=== PATIENT | female | born 1985 | race Caucasian/White ===

== ENCOUNTER 2021-03-27 10:19 | Emergency (ER) | payer BC, SELFPAY ==
[2021-03-27 11:20] VITALS: BP 168/71; PULSE 75; RESP 19; TEMP 37; O2SAT 100; BMI 25.7
--- NOTE | 2021-03-27 11:42 | HMH.EDUTC ---
[facility] [place] Disposition Clinical Impression: Cough Disposition: Home, Self-Care Condition on Discharge: Good Instructions: Cough, DI for COVID-19 (Suspected or Confirmed ), Coronavirus Disease 2019, Preventing the Spread of Coronavirus Discharge Instructions, Guaifenesin Additional Instructions: Monitor Temp, Over the counter Motrin or Tylenol as directed/as needed Tylenol every 4 hours and Motrin every 6 hours (as long as your family doctor has told you that you can take it) for fever or pain. and straight to ER if unable to lower temp less than 101.0 after medication given *Warm salt water gargles may help to soothe the throat *Throat Lozenges *Warm fluids like tea with honey may help to soothe the throat *Sleep elevated *Humidifier/Vaporizer Mucinex may help with cough and congestion make sure you are drinking plenty of fluids with it Follow up IMMEDIATELY for new or worsening symptoms or no Noticeable improvement over the next 48-72 hours. 911 for difficulty breathing or swallowing You were tested for today for COVID19 your test result should be back in the next 24-48 hours, you may call to the [facility] to see if your test results are back in the next 48 hours [phone] [facility] hours are 9am-9pm You was given a handout with instructions for Self Quarantine and Self isolation for while you wait on test results and what to do if they are positive If you are positive the Health Dept will be contacting you also Make sure to take your Vitamins Vit. C Vit D and Zinc if you can take them Prescriptions: guaiFENesin [Mucinex 600mg tablet] 1 - 2 tab PO Q12HP PRN #20 tab.er.12h PRN Reason: Congestion Transmission Status: Pending to [id number] Referrals: Pawel Wong [Primary Care Provider] - As needed Forms: Work/School Release Time of Disposition: 11:53 Medical Decision Making - Kamron Inquiry Pt receiving controlled substance: No Kamron was queried for this patient: No Vital Signs: 03/27/21 11:20 Temperature 98.6 F Temperature Source Oral Pulse Rate [Right Brachial] 75 Respiratory Rate 19 Blood Pressure [Right Arm] 168/71 H Blood Pressure Mean [Right Arm] 103 Blood Pressure Source [Right Arm] Automatic Cuff Blood Pressure Position [Right Arm] Sitting 02 Sat by Pulse Oximetry 100 Oxygen Delivery Method Room Air Orders (Tests/Meds): ORDERS Category Date Time Status Covid-19 Nasal PCR ([facility]) Routine Lab 03/27/21 11:16 Received [facility] [place] HPI - General Stated complaint: chest congestion,cough Time Seen by Provider: 03/27/21 11:42 Mode of Arrival: Ambulatory Source of Information: Patient Limitations: No Limitations Description of Symptoms (Recalled from Triage Doc. 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 and was concerned and wanted to get tested for COVID States that she has not been exposed to anyone that she is aware of but today when she was still feeling bad she came in - Related Data Home Medications Medication Instructions Recorded Confirmed Escitalopram Oxalate [Lexapro] 10 mg PO DAILY 03/27/21 03/27/21 Omeprazole [Omeprazole 40mg 40 mg PO DAILY 03/27/21 03/27/21 Capsule] Previous Rx's Medication Instructions Recorded guaiFENesin [Mucinex 600mg tablet] 1 - 2 tab PO Q12HP PRN #20 03/27/21 tab.er.12h Allergies Allergy/AdvReac Type Severity Reaction Status Date / Time No Known Allergies Allergy Verified 03/27/21 11:35 - Worker's Comp Is this a Worker's Comp case?: No [facility] History - Hepatitis A Screen Drug use history?: No High risk sexual b
[2021-03-27 11:51] VITALS: BP 168/71; PULSE 75; RESP 19; TEMP 37; O2SAT 100
--- NOTE | 2021-03-27 21:02 | PC.NURSE ---
PT NOTIFIED OF POSITIVE COVID RESULT
== END 2021-03-27 12:00 | disposition home or self-care (01) ==
PROVIDERS: Emergency Provider Nurse Practitioner; PCP Family Medicine
DX: U07.1 COVID-19 (principal); F41.9 Anxiety disorder, unspecified
CPT/HCPCS: 99202; G0463; U0003

== ENCOUNTER 2021-11-03 01:20 | Emergency (ER) | payer BC, SELFPAY ==
[2021-11-03 01:22] VITALS: BP 141/63; PULSE 69; RESP 18; TEMP 36.4; O2SAT 100; BMI 26.2
--- NOTE | 2021-11-03 01:41 | XR_ITS ---
PROCEDURE INFORMATION: Exam: XR Left Hand Exam date and time: 11/03/2021 1:47 AM Age: 36 years old Clinical indication: Injury or trauma; Fall; Blunt trauma (contusions or hematomas); Hand; Left; Additional info: Fall with injury bent fingers back in fall pain and swelling left middle finger TECHNIQUE: Imaging protocol: XR Left hand. Views: 3 or more views. COMPARISON: No relevant prior studies available. FINDINGS: Bones/joints: Oblique fracture seen through the middle phalanx of the 3rd digit. Minimal displacement. Soft tissues: Normal. IMPRESSION: Oblique fracture middle phalanx 3rd digit.
[2021-11-03 01:54] LABS: Urine Pregnancy, HCG Qual. Negative (Negative)
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
[2021-11-03 02:26] VITALS: BP 135/71; PULSE 64; RESP 14; TEMP 36.6; O2SAT 100
== END 2021-11-03 02:27 | disposition home or self-care (01) ==
PROVIDERS: Emergency Provider Emergency Medicine; PCP Family Medicine
DX: S62.623A Displaced fracture of middle phalanx of left middle finger, initial encounter for closed fracture (principal); W01.0XXA Fall on same level from slipping, tripping and stumbling without subsequent striking against object, initial encounter; Y92.9 Unspecified place or not applicable
CPT/HCPCS: 73130; 81025; 99283

== ENCOUNTER 2022-01-27 09:16 | Emergency (ER) | payer BC, SELFPAY ==
[2022-01-27 09:25] VITALS: BP 143/80; PULSE 72; RESP 16; TEMP 36.8; O2SAT 95; BMI 27.4
[2022-01-27 09:39] LABS: Adenovirus,PCR Not Detected (NotDetected); Chlamydophila Pneumoniae, PCR Not Detected (NotDetected); Coronavirus 229E Not Detected (NotDetected); Coronavirus NL63 Not Detected (NotDetected); Coronavirus OC43 Not Detected (NotDetected); Coronovirus HKU1,PCR Not Detected (NotDetected); Human Metapneumovirus Not Detected (NotDetected); Influenza A, PCR Not Detected (NotDetected); Influenza AH1, 2009 Not Detected (NotDetected); Influenza AH1, PCR Not Detected (NotDetected); Influenza AH3,PCR Not Detected (NotDetected); Influenza B, PCR Not Detected (NotDetected); Mycoplasma Pneumoniae, PCR Not Detected (NotDetected); Parainfluenza 1, PCR Not Detected (NotDetected); Parainfluenza 2, PCR Not Detected (NotDetected); Parainfluenza 3, PCR Not Detected (NotDetected); Parainfluenza 4, PCR Not Detected (NotDetected); Respiratory Syncytial Virus Not Detected (NotDetected); Rhinovirus/Enterovirus Not Detected (NotDetected)
--- NOTE | 2022-01-27 09:41 | HMH.EDUTC ---
[facility] [place] Disposition Clinical Impression: Viral syndrome Pharyngitis Qualifiers: Pharyngitis/tonsillitis etiology: unspecified etiology Qualified Code(s): J02.9 - Acute pharyngitis, unspecified Disposition: Home, Self-Care Condition on Discharge: Good Instructions: DI for Viral Syndrome, Preventing the Spread of Coronavirus Discharge Instructions Additional Instructions: Drink plenty of fluids. Take tylenol or ibuprofen for pain or fever. Take the medications as directed. Follow up with your regular doctor. GO TO THE ER FOR ANY WORSENING SYMPTOMS Quarantine until you know the results of your covid-19 test. Notify your school or workplace of your results and follow their instructions regarding return to work/school. Prescriptions: Brompheniramine/Pseudoephed/Dm [Bromfed Dm Cough Syrup] 5 ml PO Q6HP PRN #240 ml PRN Reason: Cough Transmission Status: Received by [id number] guaiFENesin [Mucinex 600mg tablet] 1 - 2 tab PO BIDP PRN #30 tab PRN Reason: Congestion Transmission Status: [id number] Referrals: Pawel Wong [Primary Care Provider] - Forms: Work/School Release Time of Disposition: 10:07 Medical Decision Making - Medical Records Medical records reviewed: No: I reviewed the patient's medical records. - Kamron Inquiry Pt receiving controlled substance: No Vital Signs: 01/27/22 09:25 01/27/22 10:11 Temperature 98.2 F 98.2 F Temperature Source Oral Pulse Rate 72 Pulse Rate [Left Radial] 72 Respiratory Rate 16 16 Blood Pressure 143/80 H Blood Pressure [Right Arm] 143/80 H Blood Pressure Mean [Right Arm] 101 02 Sat by Pulse Oximetry 95 - Lab Data Lab Results 01/27/22 09:25: Influenza Type A Ag Negative, Influenza Type B Ag Negative 01/27/22 09:26: Chlamy pneumoniae PCR Not detected, Adenovirus (PCR) Not detected, B. pertussis DNA (PCR) Not detected, Coronavirus OC43 (PCR) Not detected, Coronavirus HKU1 (PCR) Not detected, Coronavirus 229E (PCR) Not detected, SARS-CoV-2 (PCR) Detected A, Coronavirus NL63 (PCR) Not detected, Human Metapneumovir PCR Not detected, Influenza A (H1) PCR Not detected, Influ A (H1N1/09) PCR Not detected, Influenza A (H3) PCR Not detected, Influenza Type A (PCR) Not detected, Influenza Type B (PCR) Not detected, M. pneumoniae (PCR) Not detected, Parainfluenza 1 (PCR) Not detected, Parainfluenza 2 (PCR) Not detected, Parainfluenza 3 (PCR) Not detected, Parainfluenza 4 (PCR) Not detected, RSV (PCR) Not detected, Entero/Rhino (PCR) Not detected 01/27/22 09:26: Group A Strep Rapid Negative Orders (Tests/Meds): ORDERS Category Date Time Status Strep Screen Confirmation Stat Micro 01/27/22 09:26 Received [facility] [place] HPI - General Stated complaint: chest congestion, sore throat, bodyaches, VUONG Time Seen by Provider: 01/27/22 09:41 Description of Symptoms (Recalled from Triage Doc. by RN): patient comes in with complaints of body aches, chest congestion, cough,headaches, sore throat, chills. symptoms began yesterday. HEENT Symptoms (Recalled from RN notes): Yes Resp Symptoms (Recalled from RN notes): Yes Skin Symptoms (Recalled from RN notes): No MS Symptoms (Recalled from RN notes): No Functional Status (Recalled from RN notes): wnl - History of Present Illness Provider Complaint: She states that she has had body aches, chills, fever, scratchy sore throat and she has felt bad since yesterday. - Related Data Home Medications Medication Instructions Recorded Confirmed Omeprazole [Omeprazole 40mg 40 mg PO DAILY 03/27/21 11/13/21 Capsule] atenolol 100 mg tablet 100 mg PO DAILY tab 11/13/21 01/27/22 Previous Rx's Medication Instructions Recorded Brompheniramine/Pseudoephed/Dm 5 ml PO Q6HP PRN #240 ml 01/27/22 [Bromfed Dm Cough Syrup] guaiFENesin [Mucinex 600mg tablet] 1 - 2 tab PO BIDP PRN #30 tab 01/27/22 Allergies Allergy/AdvReac Type Severity Reaction Status Date / Time No Know
[2022-01-27 09:54] LABS: Strep Scrn Group A (Rapid) Negative (Negative)
[2022-01-27 10:02] LABS: UTC Influenza A Antigen Negative (Negative); UTC Influenza B Antigen Negative (Negative)
[2022-01-27 10:11] VITALS: BP 143/80; PULSE 72; RESP 16; TEMP 36.8
[2022-01-27 11:26] LABS: Bordetella Pertussis Not Detected (NotDetected); Coronavirus 19, PCR Detected (NotDetected)
== END 2022-01-27 10:12 | disposition home or self-care (01) ==
PROVIDERS: Emergency Provider Nurse Practitioner Family; PCP Family Medicine
DX: U07.1 COVID-19 (principal); J02.9 Acute pharyngitis, unspecified
CPT/HCPCS: 87430; 87581; 87632; 87798; 87804; 99212; C9803; G0463; U0003; U0005

== ENCOUNTER 2023-01-08 07:58 | Emergency (ER) | payer BC, SELFPAY ==
[2023-01-08] VITALS (9 sets, daily range): BP systolic 126–169; BP diastolic 66–92; PULSE 58–107; RESP 16–18; TEMP 36.4–36.7; O2SAT 96–100; BMI 23.8
--- NOTE | 2023-01-08 08:05 | HMH.EDGENADL ---
Discharge Plan Disposition Patient Disposition: Home, Self-Care Prescriptions Prescriptions: No Action atenolol 100 mg tablet 100 mg PO DAILY omeprazole 40 MG capsule,delayed release(DR/EC) 40 mg PO DAILY wohjemcsitiaenm-wzjfqvjim-AP 118 ML syrup 5 ml PO Q6HP PRN (Reason: Cough) Qty: 240 0RF guaifenesin 600 MG tablet extended release 12hr 1 - 2 tab PO BIDP PRN (Reason: Congestion) Qty: 30 0RF Referrals Follow up/Referrals: Pawel Wong [Primary Care Provider] - See instructions Activity Restrictions/Add. Instructions Additional Instructions/Restrictions: Please follow-up with a headache neurology specialist return to the emergency part with any worsening symptoms. Clinical Impressions Clinical Impression: Headache Discharge ED Provider: Carol Mandujano General Adult HPI General Chief complaint: Headache Stated complaint: VUONG, nausea, vision's blurring Time Seen by Provider: 01/08/23 08:05 History of Present Illness HPI narrative: Patient is a 37-year-old female presenting today with headache. She states that this is similar to previous headaches has been having over the last few years. She was never diagnosed with any headaches before about 2 years ago at which point her primary care doctor has been treating her with abortive medications and she has not been on any suppressive medications for her headache. She has never had any neuroimaging of her brain she claims. She does have intermittent blurred vision with these headaches but has no other neurologic symptoms associated with them including numbness weakness tingling changes in coordination etc. No fevers or chills or neck stiffness associate with these. There is some photophobia. She takes Tylenol ibuprofen and BC powder on a regular basis also has been prescribed sumatriptan hand which typically does not help her headaches but only makes her somnolent she claims. Today's headache is been going on for 4 days. Has been slowly worsening no thunderclap component. Related Data Home Medications Medication Instructions Recorded Confirmed omeprazole 40 mg capsule,delayed 40 mg PO DAILY GERD 03/27/21 11/13/21 release atenolol 100 mg tablet 100 mg PO DAILY High blood pressure 11/13/21 01/27/22 Previous Rx's Medication Instructions Recorded uijpzjpomxhqxdh-konyfhsqdewqkmg-DS 5 ml PO Q6HP PRN Cough #240 mL 01/27/22 2 mg-30 mg-10 mg/5 mL oral syrup guaifenesin 600 mg tablet, 1 - 2 tab PO BIDP PRN Congestion 01/27/22 extended release 12 hr #30 tabs Allergies Allergy/AdvReac Type Severity Reaction Status Date / Time No Known Allergies Allergy Verified 01/27/22 09:29 [facility] Disclaimer: The information contained in this section may have been updated after the patient was seen, as this information can be updated by other users. Medical History (Updated 01/08/23 @ 11:27 by Carol Mandujano MD) Headache Surgical History (Updated 01/08/23 @ 08:09 by Whitney Mckeon RN) S/P cervical spinal fusion Social History Smoking Status: Former smoker alcohol intake: never current occupational status: employed and other Travel in the last 8 weeks: None ROS Obtained: Yes All systems reviewed & no additional complaints except as documented Physical Exam General General appearance: alert Respiratory Respiratory exam: Present normal lung sounds bilaterally; Absent respiratory distress Cardiovascular Cardiovascular exam: Present regular rate; Absent tachycardia Neurological Exam Neurological exam: Present alert, oriented X3, CN II-XII intact and normal gait; Absent motor sensory deficit Medical Decision Making Kamron Inquiry Pt receiving controlled substance: No Vital Signs: 01/08/23 07:59 01/08/23 08:32 01/08/23 08:21 Temperature 97.6 F Temperature Source Oral Pulse Rate 107 H 81 Pulse Rate [Right Radial] 89 Respiratory Rate 16 18 Blood Press
--- NOTE | 2023-01-08 08:10 | CT_ITS ---
FINAL REPORT TECHNIQUE: Axial CT images were performed through the head. Coronal reformatted images were submitted. This study was performed with techniques to keep radiation doses as low as reasonably achievable (ALARA). Individualized dose reduction techniques using automated exposure control or adjustment of mA and/or kV according to the patient's size were employed. CLINICAL HISTORY: VUONG migraine behind eyes x 4 days FINDINGS: The ventricles are normal in size. There is no evidence of hemorrhage. There is no mass or edema identified. There is no abnormal extra-axial fluid seen. The sinuses are well aerated. The globes are symmetric. IMPRESSION: No acute intracranial process. Reviewed, Interpreted and Dictated by Richard Devlin MD Transcribed by Marlene Diaz Authenticated and [facility]
[2023-01-08 08:54] LABS: HCG Qualitative, Serum Negative (Negative)
--- NOTE | 2023-01-08 09:00 | PC.NURSE ---
PT TO RAD
--- NOTE | 2023-01-08 09:38 | PC.NURSE ---
RONDED ON PT NOTHIN NEEDED AT THIS TIME
--- NOTE | 2023-01-08 10:57 | PC.NURSE ---
CHECKED ON PT NOTHING NEEDED AT THIS TIME
--- NOTE | 2023-01-08 11:16 | PC.NURSE ---
Rounded on patient at this time. Pt advised she was feeling better and was feeling good enough to go home. Advised pt I would update MD. Pt had no other needs at this time.
== END 2023-01-08 11:39 | disposition home or self-care (01) ==
PROVIDERS: Emergency Provider Student in an Organized Health Care Education/Training Program; PCP Family Medicine
DX: R51.9 Headache, unspecified (principal); R11.0 Nausea; H53.8 Other visual disturbances; Z87.891 Personal history of nicotine dependence
CPT/HCPCS: 70450; 84703; 96361; 96374; 96375; 99284

== ENCOUNTER 2023-03-16 15:18 | Emergency (ER) | payer BC, SELFPAY ==
[2023-03-16 16:00] VITALS: BP 141/71; PULSE 69; RESP 18; TEMP 36.9; O2SAT 96; BMI 27.4
--- NOTE | 2023-03-16 16:30 | EXP.UTC ---
Discharge Plan Disposition Patient Disposition: Home, Self-Care Condition: Good Prescriptions Prescriptions: New cyclobenzaprine 10 mg tablet 10 mg PO TID PRN (Reason: muscle spasm) Qty: 15 0RF methylprednisolone [Medrol (Jesus)] 4 mg tablets,dose pack See Rx Instructions .Route .COMPLEX 6 Days Qty: 21 0RF Rx Instructions: taper pack; No Action atenolol 100 mg tablet 100 mg PO DAILY pantoprazole 40 mg tablet,delayed release (DR/EC) 40 mg PO DAILY Referrals Follow up/Referrals: Pawel Wong [Primary Care Provider] - See instructions Activity Restrictions/Add. Instructions Additional Instructions/Restrictions: Make sure to call your Family Doctor tomorrow and make appointment to discuss further testing and referral to [employer] for further testing and examination Start oral steriods tomorrow Return if needed Straight to ER if any life threatening symptoms Clinical Impressions Clinical Impression: Muscle pain Instructions Patient Instructions: Cyclobenzaprine Discharge ED Provider: Alejandra Shaw [facility] General Stated complaint: Body pain,hurts to walk from hips down Mode of Arrival: Ambulatory Source of Information: Patient Limitations: No Limitations Time Seen by Provider: 03/16/23 16:30 Description of Symptoms (Recalled from Triage Doc. by RN): PATIENT C/O INTERMITTEN BODY ACHES IN ARMS, WRIST, LEGS AND FEET SINCE DECEMBER. SHE STATES IT HURTS TO WALK AND TAKE DEEP BREATHS HEENT Symptoms (Recalled from RN notes): No Resp Symptoms (Recalled from RN notes): No Skin Symptoms (Recalled from RN notes): No MS Symptoms (Recalled from RN notes): Yes Functional Status (Recalled from RN notes): WNL History of Present Illness Provider Complaint: Patient states that she has been having intermittent muscle aches and pain since December State that pain when it starts is in her legs, hips, arms and back and hurts to take a deep breath States that she has been seeing her PCP and they have been running blood work and testing her to try to figure out why she is having these episodes States that this weekend her symptoms started again and today her pain was worse States that she took 800mg of Ibuprofen earlier but not helped much Related Data Home Medications Medication Instructions Recorded Confirmed atenolol 100 mg tablet 100 mg PO DAILY Hypertension 11/13/21 03/16/23 pantoprazole 40 mg tablet,delayed 40 mg PO DAILY GERD 03/16/23 03/16/23 release Previous Rx's Medication Instructions Recorded cyclobenzaprine 10 mg tablet 10 mg PO TID PRN muscle spasm #15 03/16/23 tabs methylprednisolone 4 mg tablets in See Rx Instructions .Route 03/16/23 a dose pack (Medrol (Jesus)) .COMPLEX 6 days #21 tabs Allergies Allergy/AdvReac Type Severity Reaction Status Date / Time No Known Allergies Allergy Verified 01/27/22 09:29 Worker's Comp Is this a Worker's Comp case?: No [facility] Disclaimer: The information contained in this section may have been updated after the patient was seen, as this information can be updated by other users. Medical History (Updated 03/16/23 @ 16:59 by Alejandra Shaw APRN) Headache History of gastroesophageal reflux (GERD) Hypertension Surgical History S/P cervical spinal fusion Social History Smoking Status: Former smoker alcohol intake: never current occupational status: employed and other Travel in the last 8 weeks: None ROS Obtained: Yes All systems reviewed & no additional complaints except as documented and Yes Systems reviewed as appropriate & no additional complaints except as documented ENT Ears, Nose, Mouth, and Throat: Reports system reviewed and no additional complaints, except as documented and Reports as per HPI Cardiovascular Cardiovascular: Reports system reviewed and no additional complaints, except as documented and R
[2023-03-16 17:02] LABS: UTC Pregnancy Test, Urine Negative (Negative)
[2023-03-16 17:06] VITALS: BP 141/71; PULSE 69; RESP 18; TEMP 36.9; O2SAT 96
== END 2023-03-16 17:19 | disposition home or self-care (01) ==
PROVIDERS: Emergency Provider Nurse Practitioner; PCP Family Medicine
DX: M79.18 Myalgia, other site (principal); K21.9 Gastro-esophageal reflux disease without esophagitis; I10 Essential (primary) hypertension; Z87.891 Personal history of nicotine dependence
CPT/HCPCS: 81025; 96372; 99212; 99214; G0463

== ENCOUNTER 2023-08-05 08:50 | Emergency (ER) | payer BC, SELFPAY ==
[2023-08-05 08:50] VITALS: BP 132/85; PULSE 74; RESP 16; TEMP 36.8; O2SAT 93; BMI 27.1
--- NOTE | 2023-08-05 09:12 | EXP.UTC ---
Discharge Plan Disposition Patient Disposition: Home, Self-Care Condition: Good Prescriptions Prescriptions: New prednisone 10 mg tablet 10 mg PO BID 5 Days Qty: 10 0RF azithromycin [Zithromax] 250 mg tablet 250 mg PO UD DOSE PK Qty: 6 0RF Rx Instructions: Take two (2) tablets today, then one (1) tablet days #2 thru #5 [id number]-[id number]-[id number] [Bromfed DM] 2-30-10 mg/5 mL Syrup 5 ml PO Q6H PRN (Reason: Cough) Qty: 240 0RF No Action atenolol 100 mg tablet 100 mg PO DAILY pantoprazole 40 mg tablet,delayed release (DR/EC) 40 mg PO DAILY cyclobenzaprine 10 mg tablet 10 mg PO TID PRN (Reason: muscle spasm) Qty: 15 0RF methylprednisolone [Medrol (Jesus)] 4 mg tablets,dose pack See Rx Instructions .Route .COMPLEX 6 Days Qty: 21 0RF Rx Instructions: taper pack; Referrals Follow up/Referrals: Pawel Wong [Primary Care Provider] - See instructions Activity Restrictions/Add. Instructions Additional Instructions/Restrictions: Drink plenty of fluids. Take tylenol or ibuprofen for pain or fever. Take the medications as directed. Follow up with your regular doctor. GO TO THE ER FOR ANY WORSENING SYMPTOMS Clinical Impressions Clinical Impression: Upper respiratory infection, Acute viral syndrome, Pharyngitis Stand Alone Forms Stand Alone Forms: Work/School Release Instructions Patient Instructions: DI for Viral Upper Respiratory Infection -- Adult, DI for Viral Syndrome Discharge ED Provider: Kamran Hernández [facility] General Stated complaint: sore throat, congestion, fever Time Seen by Provider: 08/05/23 09:12 History of Present Illness Provider Complaint: She states that for the past 3 days she has had a sore throat, sinus congestion, cough and malaise. Related Data Home Medications Medication Instructions Recorded Confirmed atenolol 100 mg tablet 100 mg PO DAILY Hypertension 11/13/21 03/16/23 pantoprazole 40 mg tablet,delayed 40 mg PO DAILY GERD 03/16/23 03/16/23 release Previous Rx's Medication Instructions Recorded cyclobenzaprine 10 mg tablet 10 mg PO TID PRN muscle spasm #15 03/16/23 tabs methylprednisolone 4 mg tablets in See Rx Instructions .Route 03/16/23 a dose pack (Medrol (Jesus)) .COMPLEX 6 days #21 tabs azithromycin 250 mg tablet 250 mg PO UD DOSE PK #6 tabs 08/05/23 (Zithromax) fwdnjtmxsbmeobm-amtbzrenbemxagp-UH 5 ml PO Q6H PRN Cough #240 mL 08/05/23 2 mg-30 mg-10 mg/5 mL oral syrup (Bromfed DM) prednisone 10 mg tablet 10 mg PO BID 5 days #10 tabs 08/05/23 Allergies Allergy/AdvReac Type Severity Reaction Status Date / Time No Known Allergies Allergy Verified 01/27/22 09:29 [facility] Disclaimer: The information contained in this section may have been updated after the patient was seen, as this information can be updated by other users. Medical History (Updated 08/05/23 @ 10:04 by Kamran Hernández APRN) Headache History of gastroesophageal reflux (GERD) Hypertension Surgical History S/P cervical spinal fusion Social History Smoking Status: Former smoker alcohol intake: never current occupational status: employed and other Travel in the last 8 weeks: None ROS Obtained: Yes All systems reviewed & no additional complaints except as documented Constitutional Constitutional: Reports chills and Denies fever(s) Eyes Eyes: Denies eye discharge ENT Ears, Nose, Mouth, and Throat: Reports as per HPI Cardiovascular Cardiovascular: Denies chest pain Respiratory Respiratory: Denies chest congestion and Reports cough Gastrointestinal Gastrointestingal: Reports nausea; Denies abdominal pain, constipation, cramping, diarrhea or vomiting Musculoskeletal Musculoskeletal: Denies arthralgias Integumentary/Breasts Skin/Breast: Denies rash Neurologic Neurologic: Denies paresthesias Physic
[2023-08-05 09:52] LABS: UTC Influenza A Antigen Negative (Negative); UTC Influenza B Antigen Negative (Negative)
[2023-08-05 10:24] VITALS: BP 132/85; PULSE 74; RESP 16; TEMP 36.8; O2SAT 93
== END 2023-08-05 10:25 | disposition home or self-care (01) ==
PROVIDERS: Emergency Provider Nurse Practitioner Family; PCP Family Medicine
DX: J02.9 Acute pharyngitis, unspecified (principal); B34.9 Viral infection, unspecified; R50.9 Fever, unspecified; R05.9 Cough, unspecified; R53.81 Other malaise; J06.9 Acute upper respiratory infection, unspecified; K21.9 Gastro-esophageal reflux disease without esophagitis; I10 Essential (primary) hypertension
CPT/HCPCS: 87635; 87804; 99212; 99214; G0463

== ENCOUNTER 2024-08-02 09:24 | Emergency (ER) | payer OTHER, SELFPAY ==
[2024-08-02 09:45] VITALS: BP 147/69; PULSE 68; RESP 18; TEMP 36.5; O2SAT 100; BMI 21.7
--- NOTE | 2024-08-02 09:51 | ED_ITS ---
Discharge Plan Disposition Patient Disposition: Home, Self-Care Condition: Good Prescriptions Prescriptions: New azithromycin [Zithromax] 250 mg tablet 250 mg PO UD DOSE PK Qty: 6 0RF Rx Instructions: Take two (2) tablets today, then one (1) tablet days #2 thru #5 benzonatate 100 mg capsule 100 mg PO TIDP PRN (Reason: Cough) Qty: 30 0RF methylprednisolone 4 mg Tablets,Dose Pack 4 mg PO DIRECTED 6 Days Qty: 21 0RF Rx Instructions: Take 1 pack as directed for 6 days Referrals Follow up/Referrals: Pawel Wong [Primary Care Provider] - See instructions Activity Restrictions/Add. Instructions Additional Instructions/Restrictions: Drink plenty of fluids. Take tylenol or ibuprofen for pain or fever. Take the medications as directed. Follow up with your regular doctor. GO TO THE ER FOR ANY WORSENING SYMPTOMS Clinical Impressions Clinical Impression: Pharyngitis, Otitis media Stand Alone Forms Stand Alone Forms: Work/School Release Instructions Patient Instructions: Middle Ear Infection Print Language Print Language: Sinhala Discharge ED Provider: Kamran Hernández [facility] General Stated complaint: sore throat, congestion, and ear ache Mode of Arrival: Ambulatory Source of Information: Patient Time Seen by Provider: 08/02/24 09:47 Description of Symptoms (Recalled from Triage Doc. by RN): CONGESTED, DRAINAGE, EAR ACHE HEENT Symptoms (Recalled from RN notes): Yes Resp Symptoms (Recalled from RN notes): Yes Skin Symptoms (Recalled from RN notes): No MS Symptoms (Recalled from RN notes): No Functional Status (Recalled from RN notes): WNL Related Data Previous Rx's ?Medication ?Instructions ?Recorded azithromycin 250 mg tablet 250 mg PO UD DOSE PK #6 tabs 08/02/24 (Zithromax) benzonatate 100 mg capsule 100 mg PO TIDP PRN Cough #30 caps 08/02/24 methylprednisolone 4 mg tablets in 4 mg PO DIRECTED 6 days #21 tabs 08/02/24 a dose pack Allergies Allergy/AdvReac Type Severity Reaction Status Date / Time No Known Allergies Allergy Verified 01/27/22 09:29 Worker's Comp Is this a Worker's Comp case?: No [facility] Disclaimer: The information contained in this section may have been updated after the patient was seen, as this information can be updated by other users. Medical History (Updated 08/02/24 @ 10:44 by Kamran Hernández APRN) History of gastroesophageal reflux (GERD) Hypertension Headache Surgical History S/P cervical spinal fusion Social History Smoking Status: Former smoker alcohol intake: never current occupational status: employed and other Travel in the last 8 weeks: None Have you lived/traveled outside [place] in past 30 days?: No Contact w/someone who lives/traveled outside [place] past 30 days?: No Exposure to someone with infectious disease in past 14 days?: No Do you have a fever (greater than 100.4 F or 38 C)?: No Have you tested positive for COVID-19: No Exposed to someone with COVID-19 in past 14 days?: No Do you have a sore throat?: No Do you have a cough?: No Do you have any weakness?: No Do you have any diarrhea?: No Are you experiencing any unusual bleeding?: No Do you have any muscle aches/pain?: No Do you have any abdominal pain?: No Are you experiencing loss of taste or smell?: No ROS Obtained: Yes All systems reviewed & no additional complaints except as documented Constitutional Constitutional: Reports chills and Reports fever(s) Eyes Eyes: Denies eye discharge ENT Ears, Nose, Mouth, and Throat: Reports as per HPI Cardiovascular Cardiovascular: Denies chest pain Respiratory Respiratory: Denies chest congestion and Reports cough Gastrointestinal Gastrointestingal: Reports nausea; Denies abdominal pain, constipation, cr amping, diarrhea or vomiting Musculoskeletal Musculoskeletal: Denies arthralgias Integumentary/Breasts Skin/Breast: Denies rash Neurologic Neurologic: Denies paresthesias Physical Exam General General appearance: alert and in no apparent distress Head Head exam: atraumatic, normocephalic and normal inspection Eye Eye exam: Present normal appearance, PERRL and EOMI ENT ENT exam: Present mucous membranes moist and normal external ear exam Expanded ENT Exam TM/Canal exam: Bilateral TM: erythema and bulging Nose exam: Absent sinus tenderness Mouth exam: Present normal external inspection; Absent drooling Teeth exam: Present normal inspection Throat exam: Present tonsillar erythema, tonsillomegaly and tonsillar exudate Neck Neck exam: Present normal inspection, full ROM and trachea midline; Absent tenderness, meningismus or lymphadenopathy Chest Chest inspection: Present normal inspection and symmetric chest wall rise; Absent tenderness Respiratory Respiratory exam: Present normal lung sounds bilaterally; Absent respiratory distress, wheezes, stridor or accessory muscle use Cardiovascular Cardiovascular exam: Present regular rate and normal rhythm; Absent systolic murmur or diastolic murmur Abdominal Exam Abdominal exam: Present soft and normal bowel sounds; Absent distention, tenderness, guarding, rebound or rigidity Extremities Exam Extremities exam: Present normal inspection and normal capillary refill; Absent calf tenderness Back Exam Back exam: Present normal inspection and full ROM; Absent tenderness, CVA tenderness (R) or CVA tenderness (L) Neurological Exam Neurological exam: Present alert, oriented X3 and CN II-XII intact Psychiatric Psychiatric exam: Present normal affect and normal mood Skin Skin exam: Present warm, dry, intact and normal color Medical Decision Making Medical Records Medical records reviewed: No I reviewed the patient's medical records. Screening: Per USPSTF and CDC recommendations, given the prevalence of disease in our region, it is our hospital?s policy to screen for HIV and viral Hepatitis for all patients aged 18 and over and those with ongoing risk factors. [place] Inquiry Pt receiving controlled substance: No Vital Signs: 08/02/24 09:45 Temperature 97.7 F Temperature Source Oral Pulse Rate [Left Radial] 68 Respiratory Rate 18 Blood Pressure [Left Arm] 147/69 H Blood Pressure Mean [Left Arm] 95 02 Sat by Pulse Oximetry 100
[2024-08-02 10:48] VITALS: BP 147/89; PULSE 68; RESP 18; TEMP 36.1
== END 2024-08-02 10:49 | disposition home or self-care (01) ==
PROVIDERS: Emergency Provider Nurse Practitioner Family; PCP Family Medicine
DX: J02.9 Acute pharyngitis, unspecified (principal); H66.90 Otitis media, unspecified, unspecified ear; R50.9 Fever, unspecified; R09.81 Nasal congestion; H92.09 Otalgia, unspecified ear; R11.0 Nausea
CPT/HCPCS: 99212; G0381